=== PATIENT | female | born 2000 | race African-American/Black ===

== ENCOUNTER 2022-02-15 16:15 | Emergency (ER) | payer OTHER, SELFPAY ==
[2022-02-15 16:18] VITALS: BP 123/80; PULSE 97; RESP 16; TEMP 36.8; O2SAT 97
--- NOTE | 2022-02-15 16:36 | ED.GENADULT ---
HPI - General Adult General Chief complaint: Unspecified Stated complaint: requesting strep test Time Seen by Provider: 02/15/22 16:19 Source: RN notes reviewed History of Present Illness HPI narrative: Patient presents emergency department from home for sore throat. Patient states that symptoms began 2 days ago. States she has a sore throat that is worse with swallowing states is associated with chills and rhinorrhea. She denies any fevers, cough, abdominal pain, nausea vomiting diarrhea or any other symptoms. States he has a history of frequent strep infections. Last took ibuprofen at 7 AM this morning Related Data Allergies Allergy/AdvReac Type Severity Reaction Status Date / Time No Known Allergies Allergy Verified 02/15/22 16:16 Review of Systems Review of Systems: Gen.: Denies fevers or chills ENT: See HPI Respiratory: Denies shortness of breath or cough CV: Denies chest pain GI: Denies abdominal pain nausea, emesis or diarrhea Musculoskeletal: Denies back pain or muscle pain Neuro: Denies numbness, tingling, weakness or focal weakness Skin: Denies rash Except as documented, all other systems reviewed and negative [facility] Past Medical History Medical History (Updated 02/15/22 @ 16:38 by Sarabjit Chamorro DO) Patient denies significant medical history Social History Social History (Updated 02/15/22 @ 16:37 by Sarabjit Chamorro DO) Smoking status: Never smoker Exam Narrative: APPEARANCE: No acute distress, nontoxic, resting in bed EYES: EOMI HEENT: Normocephalic, atraumatic, TMs clear bilaterally nares patent or mucosa moist erythema the posterior pharynx bilateral tonsils, bilateral tonsils 3+ with diffuse whitish exudate, uvula midline no trismus tolerating own secretions, voice normal RESPIRATORY: No respiratory distress Clear to auscultation bilaterally with no rhonchi wheezing or rales. CARDIOVASCULAR: Regular rate and rhythm without murmurs rubs or gallops. ABDOMINAL: Soft, nontender, MUSCULOSKELETAl: Moves all extremities. NEURO: Awake and alert. Following commands, speech normal, no focal deficits SKIN:: Warm, dry. No rashes lesions or abrasions PSYCHIATRIC: Normal affect/mood, Course Course Emergency Course: Discussed with patient results of workup and diagnosis. Discussed need for follow-up with primary care, proper use of medication, and reasons to return to the emergency department. Patient understands and agrees to current treatment plan Vital Signs Vital signs: Vital Signs Temperature 98.2 F 02/15/22 16:18 Pulse Rate 97 02/15/22 16:18 Respiratory Rate 16 02/15/22 16:18 Blood Pressure 123/80 02/15/22 16:18 Pulse Oximetry 97 02/15/22 16:18 Temperature 98.2 F 02/15/22 16:18 Pulse Rate 97 02/15/22 16:18 Respiratory Rate 16 02/15/22 16:18 Blood Pressure 123/80 02/15/22 16:18 Pulse Oximetry 97 02/15/22 16:18 Medical Decision Making Vital Signs Vital Signs: Vital Signs Temperature 98.2 F 02/15/22 16:18 Pulse Rate 97 02/15/22 16:18 Respiratory Rate 16 02/15/22 16:18 Blood Pressure 123/80 02/15/22 16:18 Pulse Oximetry 97 02/15/22 16:18 Temperature 98.2 F 02/15/22 16:18 Pulse Rate 97 02/15/22 16:18 Respiratory Rate 16 02/15/22 16:18 Blood Pressure 123/80 02/15/22 16:18 Pulse Oximetry 97 02/15/22 16:18 Lab Data Labs: Strep Screen Presumptive Negative *(Reference Range: Negative)* Discharge Plan Discharge Clinical Impression: Pharyngitis Patient Disposition: Home, Self-Care Condition: Stable Instructions: Antibiotic Form, Pharyngitis (ED) Additional Instructions: Return for increasing sore throat, inability to swallow fever or any other symptoms of concern Prescriptions: New ibuprofen [IBU] 600 mg tablet 600 mg PO Q6H PRN (Reason: pain) Qty: 20 RF: 0 amoxicillin-pot clavulanate 875-125 mg tablet 1 tablet PO Q12H Qty: 2
[2022-02-15] MEDS: IBUPROFEN 600 MG TABLET PO (16:54)
[2022-02-15] MEDS: AMOXICILLIN/CLAVULANATE K 875-125 MG TAB 1 TABLET PO (16:54)
== END 2022-02-15 17:03 | disposition home or self-care (01) ==
PROVIDERS: Emergency Provider Emergency Medicine
DX: J02.9 Acute pharyngitis, unspecified (principal)
CPT/HCPCS: 87081; 87880; 99283; A9270

== ENCOUNTER 2023-01-11 12:12 | Emergency (ER) | payer OTHER, SELFPAY ==
[2023-01-11 12:15] VITALS: BP 129/68; PULSE 78; RESP 16; TEMP 36.6; O2SAT 100
[2023-01-11] MEDS: SODIUM CHLORIDE 0.9% IV 1,000 ML 999 ML IV CONT (12:49)
[2023-01-11] MEDS: ONDANSETRON INJ 4 MG/2 ML VIAL IV PUSH (12:49)
[2023-01-11 12:59] LABS: Basophils Percent Auto 0.2 % (0.2-1.2); Eosinophils Percent Auto 0.1 % (0-4.4); Hematocrit 42.6 % (37.0-47.0); Immature Granulocyte Absolute 0.02 K/mm3 (0.00-0.031); Immature Granulocyte Percent A 0.2 % (0-0.5); Lymphocytes Absolute Auto 0.75 K/mm3 (0.9-3.2); Mean Corpuscular HGB Conc 32.9 g/dl (32-36); Mean Corpuscular Hemoglobin 30.4 pg (26-34); Mean Corpuscular Volume 92.6 fl (80-100); Mean Platelet Volume 9.5 fl (7.4-10.4); Monocytes Absolute Auto 0.3 K/mm3 (0.1-0.6); Monocytes Percent Auto 3.5 % (2.6-8.5); Neutrophils Absolute Auto 8.2 K/mm3 (1.3-6.7); Platelet Count Result 198 k/mm3 (150-375); Red Cell Distribution Width 12.6 % (11.5-14.5); White Blood Count 9.3 K/mm3 (4.5-10.0)
[2023-01-11 13:10] LABS: Appearance Urine Slightly Cloudy (Clear); Bilirubin Urine Negative (Negative); Blood Urine Negative (Negative); Color Urine Yellow (Yellow); Glucose Urine UA Negative (Negative); Ketones Urine Trace mg/dL (Negative); Leukocyte Esterase Ur Negative LEU/UL (Negative); Nitrate Urine Negative (Negative); Protein Urine Trace mg/dL (Negative); Urobilinogen Urine 0.2 mg/dL (<2.0)
[2023-01-11 13:14] LABS: Alanine Aminotransferase 21 U/L (6-35); Albumin Level 4.5 g/dL (3.5-5.1); Alkaline Phosphatase 46 U/L (38-126); Anion Gap 3 mmol/L (8-16); Aspartate Amino Transferase 32 U/L (14-36); Bilirubin,Total 0.5 mg/dL (0.2-1.3); Blood Urea Nitrogen 8 mg/dL (7-17); Carbon Dioxide 28 mmol/L (22-30); Chloride 107 mmol/L (98-107); Estimated CRCL calculation 123 ml/min; Estimated Glomerular Filt Rate > 60; Glucose 100 mg/dL (65-110); Lipase 45 U/L (23-300); Potassium 4.1 mmol/L (3.4-5.0); Sodium 138 mmol/L (137-145)
[2023-01-11 13:15] LABS: Amorphous Sediment Urine Few; Mucus Urine Rare /lpf; RBC Urine 0-2 /hpf (0-2); Squamous Epithelial Cell Urine Few /hpf (Few); WBC Urine 0-3 /hpf
[2023-01-11 13:18] LABS: Add Urine Microscopic? YES
--- NOTE | 2023-01-11 13:19 | ED.NAVMDI ---
HPI - Nausea/Vomiting/Diarrhea General Chief complaint: Nausea/Vomiting/Diarrhea Stated complaint: N/V Time Seen by Provider: 01/11/23 12:13 History of Present Illness HPI Narrative: Patient is a 22-year-old female who presents to the ER with nausea and vomiting. It began at 6:45 AM. She has had multiple episodes and is only vomiting stomach acid at this point. No diarrhea. Occasional abdominal cramping but no pain. No fevers chills or sweats. Mild runny nose but no sore throat or productive cough. No known sick contacts. No alleviating factors. Patient reports concern for possible COVID given her symptoms. Related Data Allergies Allergy/AdvReac Type Severity Reaction Status Date / Time No Known Allergies Allergy Verified 01/11/23 12:18 Review of Systems Review of Systems: All systems reviewed & are unremarkable except as noted in HPI and below Constitutional: Constitutional: Reports chills, Denies fatigue and Denies fever(s) Respiratory: Respiratory: Denies cough and Denies dyspnea Gastrointestinal: Gastrointestinal: Denies abdominal pain, Denies diarrhea, Reports nausea and Reports vomiting Genitourinary: Genitourinary: Denies hematuria and Denies dysuria PMFSH Past Medical History Medical History (Updated 01/11/23 @ 14:51 by Paul Dailey MD) Patient denies significant medical history Surgical History Surgical History (Updated 01/11/23 @ 13:24 by Paul Dailey MD) No history of previous surgery Social History Social History (Updated 02/15/22 @ 16:37 by Sarabjit Chamorro DO) Smoking status: Never smoker Exam Narrative: GENERAL: Well-appearing, well-nourished, and in no acute distress. HEAD: Normocephalic, atraumatic. ENT: Mucous membranes moist. CHEST: Clear to auscultation. No respiratory distress. HEART: Regular rate and rhythm. Normal peripheral pulses. ABDOMEN: Soft, nontender, nondistended, normal active bowel sounds. EXTREMITIES: Normal range of motion. No edema. SKIN: Warm, dry, no rash. NEURO: Alert and oriented x3. PSYCH: Normal mood and affect. Course Course Emergency Course: I have informed the patient of her results which are unremarkable for acute kidney injury, dehydration, or flu/COVID. Patient felt to have a GI illness causing nausea and vomiting. She will be discharged with antiemetics for home. Patient without any additional concerns. She did receive IV fluid and Zofran here which makes her feel much better. Vital Signs Vital signs: Vital Signs Temperature 97.8 F 01/11/23 12:15 Pulse Rate 78 01/11/23 12:15 Respiratory Rate 16 01/11/23 12:15 Blood Pressure 129/68 01/11/23 12:15 Pulse Oximetry 100 01/11/23 12:15 Temperature 97.8 F 01/11/23 12:15 Pulse Rate 78 01/11/23 12:15 Respiratory Rate 16 01/11/23 12:15 Blood Pressure 129/68 01/11/23 12:15 Pulse Oximetry 100 01/11/23 12:15 MDM - Nausea/Vomiting/Diarrhea Lab Data 01/11/23 12:50 01/11/23 12:50 Labs: Lab Results 01/11/23 01/11/23 01/11/23 Range/Units 12:50 12:50 12:50 WBC 9.3 (4.5-10.0) K/mm3 RBC 4.60 (4.2-5.4) M/mm3 Hgb 14.0 (12.0-15.0) g/dL Hct 42.6 (37.0-47.0) % MCV 92.6 (80-100) fl MCH 30.4 (26-34) pg MCHC 32.9 (32-36) g/dl RDW 12.6 (11.5-14.5) % Plt Count 198 (150-375) k/mm3 MPV 9.5 (7.4-10.4) fl Immature Gran % (Auto) 0.2 (0-0.5) % Neut % (Auto) 88.0 H (45.5-73.1) % Lymph % (Auto) 8.0 L (18.3-44.2) % Benzie % (Auto) 3.5 (2.6-8.5) % Eos % (Auto) 0.1 (0-4.4) % Baso % (Auto) 0.2 (0.2-1.2) % Lymph # (Auto) 0.75 L (0.9-3.2) K/mm3 Benzie # (Auto) 0.3 (0.1-0.6) K/mm3 Eos # (Auto) 0.0 (0-0.3) K/mm3 Baso # (Auto) 0.0 (0.0-0.1) K/mm3 Abs Immat Gran (auto) 0.02 (0.00-0.031) K/mm3 Absolute Neuts (auto) 8.2 H (1.3-6.7) K/mm3 Absolute Nucleated RBC 0.0 (0.0-0.012) K/mm3 Nucleated RBC % 0.0 (0.0-0.2) % Sodium
[2023-01-11 13:36] LABS: Influenza A QL RT-PCR Negative (Negative); Influenza B QL RT-PCR Negative (Negative); SARS-CoV-2 RNA PCR Negative
--- NOTE | 2023-01-15 08:48 | PC.NURSE ---
late entry 01/11/23 ns 1000 cc infused at 1349
== END 2023-01-11 15:18 | disposition home or self-care (01) ==
PROVIDERS: Emergency Provider Emergency Medicine
DX: R11.2 Nausea with vomiting, unspecified (principal); Z20.822 Contact with and (suspected) exposure to COVID-19
CPT/HCPCS: 36415; 80053; 81001; 81025; 83690; 85025; 87636; 96361; 96374; 99284; J2405; J7030

== ENCOUNTER 2024-12-26 13:20 | Emergency (ER) | payer OTHER, SELFPAY ==
[2024-12-26 13:28] VITALS: BP 121/75; PULSE 77; RESP 18; TEMP 36.6; O2SAT 100
--- OUTSIDE RECORDS SUMMARY | 2024-12-26 14:03 | XMS_ITS | Referral Summary ---
Author Organization [facility] Address [address] [place] [id number] Care Team Providers Care Technician Support Association Name Role Phone Gonzalez Guadalupe MD Primary Care Provider Allergies No known active allergies Medications No known medications Immunizations Name Administration Dates Next Due COVID Pfizer 12Y+ (Requires Dilution) 05/07/2021 ,04/14/2021 Social History Tobacco Use Types Packs/Day Years Used Date Smoking Tobacco: Never Smokeless Tobacco: Never Alcohol Use Standard Drinks/Week Comments Never 0 (1 standard drink = 0.6 oz pur e alcohol) Inadequate Housing Answer Date Recorded Social Determinants: Housing (Overall Score Help er) 0 09/17/2023 Sex and Gender Information Value Date Recorded Sex Assigned at Female 04/14/2021 6:37 AM CDT Gender Identity Female 04/14/2021 6:37 AM CDT Sexual Orientation Not on file Last Filed Vital Signs Vital Sign Reading Time Taken Comments Blood Pressure 107/72 11/06/2020 8:39 AM ANATOMY PROFESSOR Pulse 73 11/06/2020 8:39 AM ANATOMY PROFESSOR Temperature 36.6 ??C (97.8 ??F) 11/06/2020 8:39 AM CS T 97.8 Respiratory Rate 16 11/06/2020 8:39 AM ANATOMY PROFESSOR Oxygen Saturation 100% 11/06/2020 8:39 AM ANATOMY PROFESSOR Inhaled Oxygen Concentration - - Weight 72.6 kg (160 lb) 11/06/2020 8:39 AM ANATOMY PROFESSOR Height 160 cm (5' 3 ) 11/06/2020 8:39 AM ANATOMY PROFESSOR Body Mass Index 28.34 11/06/2020 8:39 AM ANATOMY PROFESSOR Plan of Treatment Not on file Procedures Procedure Name Priority Date/Time Associated Diagnosis Comments CHLAMYDIA/GONORRHEA BY NUCLEIC ACID AMPLIFICATION Routine 09/19/2023 11:28 AM CDT Encounter for screening for infections with a predominantly sexual mode of transmission from Last 3 Months or Most Recently Relevant to Health Maintenance Results * Chlamydia/Gonorrhea by Nucleic Acid Amplification (09/19/2023 11:28 AM CDT) Chlamydia trachomatis by Nucleic Acid Amplification Negative Negative [facility] 09/21/2023 11:56 AM CDT [facility] Neisseria gonorrhoeae by Nucleic Acid Amplification Negative Negative [facility] 09/21/2023 11:56 AM CDT [facility] Disclaimer The expected normal reference range is negative. Positive results are reported to the [facility] Department of Public Health. The Aptima Combo 2 Assay is not intended for the evaluation of suspected sexual abuse or for other medico-legal indications, nor has it been evaluated in adolescents less than 14 years of age. In these scenarios, and in clinical settings where the prevalence of infection is low, confirmatory testing on positive results is recommended. [facility] 09/21/2023 11:56 AM CDT [facility] Swab VAGINAL STRUCTURE / Unknown 09/19/2023 11:28 AM CDT 09/19/2023 9:39 PM CDT Buffy Pratt MD [facility] DI[facility]N ORD [facility] [address] [place] [address] from Last 3 Months or Most Recently Relevant to Health Maintenance Care Teams Technician Support Association Relationship Specialty Start Date End Date Gonzalez Guadalupe MD [address] [place] [address] PCP - General Family Practice 11/06/20
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
--- OUTSIDE RECORDS SUMMARY | 2024-12-26 14:03 | XMS_ITS | Clinical Summary ---
Author Organization [facility] Address [address] [place] [address] Care Team Providers Care Pump Technician Name Role Phone Gonzalez Guadalupe MD Primary Care Provider Allergies No known active allergies Medications No known medications Immunizations Name Administration Dates Next Due COVID Pfizer 12Y+ (Requires Dilution) 05/07/2021 ,04/14/2021 Surgical History Surgery Date Site/Laterality Comments NO PAST SURGERIES Medical History Medical History Date Comments No known problems Social History Tobacco Use Types Packs/Day Years [...] AM CDT Sexual Orientation Not on file Obstetrics History Last Filed Vital Signs Vital Sign Reading Time Taken Comments Blood Pressure 107/72 11/06/2020 8:39 AM HEALTHCARE FINANCIAL ANALYST Pulse 73 11/06/2020 8:39 AM HEALTHCARE FINANCIAL ANALYST Temperature 36.6 ??C (97.8 ??F) 11/06/2020 8:39 AM CS T 97.8 Respiratory Rate 16 11/06/2020 8:39 AM HEALTHCARE FINANCIAL ANALYST Oxygen Saturation 100% 11/06/2020 8:39 AM HEALTHCARE FINANCIAL ANALYST Inhaled Oxygen Concentration - - Weight 72.6 kg (160 lb) 11/06/2020 8:39 AM HEALTHCARE FINANCIAL ANALYST Height 160 cm (5' 3 ) 11/06/2020 8:39 AM HEALTHCARE FINANCIAL ANALYST Body Mass Index 28.34 11/06/2020 8:39 AM HEALTHCARE FINANCIAL ANALYST Plan of Treatment Health Maintenance Due Date Last Done Comments Depression Screening 2013 DTaP/Tdap/Td Vaccine (7 - Td or Tdap) 07/19/2022 07/19/2012, 03/11/2006, 06/06/2003, Additional history exists COVID-19 Vaccine ( season) 2024 05/07/2021, 04/14/2021 Influenza Vaccine (#1) 2024 Chlamydia and Gonorrhea Screening (if sexually active) 09/19/2024 09/19/2023 Hepatitis B Vaccine Completed 10/20/2002, 2001, 2001 Pneumococcal Vaccine 0-49 Aged Out 2002, 10/20/2002, 2001, Additional history exists No longer eligible based on patient's age to complete this topic HPV Vaccine Completed 07/05/2015, 11/13/2014 Varicella Vaccine Completed 07/05/2015, 11/26/2002 Meningococcal Vaccine Completed 04/15/2018, 013 Procedures Procedure Name Priority Date/Time Associated Diagnosis [...] negative. Positive results are reported to the [place] Department of Public Health. The Aptima Combo [...] MD [facility] [address] [place] [address] from Last 3 Months or Most Recently Relevant to Health Maintenance Care Teams Pump Technician Relationship Specialty Start Date End Date Gonzalez Guadalupe MD [address] [place] [address] PCP - General Family Practice 11/06/20
--- OUTSIDE RECORDS SUMMARY | 2024-12-26 14:03 | XMS_ITS | Encounter Summary ---
Author Organization [facility] Address [address] [place] [address] Care Team Providers Care Property Appraiser Name Role Phone Gonzalez Guadalupe MD Primary Care Provider [phone] Encounter Details Date Type Department Care Team (Latest Contact Info) Description 09/19/2023 Community Orders [facility] [address] [place] [address] Buffy Pratt MD [address] [facility] [address] [place] [address] Encounter for gynecological examination (general) (routine) without abnormal findings (Primary Dx); Encounter for screening for infections with a predominantly sexual mode of transmission Social History Tobacco Use Types Packs/Day Years [...] AM CDT Sexual Orientation Not on file documented as of this encounter Plan of Treatment Not on file documented as of this encounter Results * Chlamydia/Gonorrhea by Nucleic Acid Amplification (09/19/2023 11:28 AM CDT) Chlamydia trachomatis by Nucleic Acid Amplification Negative Negative [facility] 09/21/2023 11:56 AM CDT [facility] [place] [facility] Neisseria gonorrhoeae by Nucleic Acid Amplification Negative Negative [facility] 09/21/2023 11:56 AM CDT [facility] [place] [facility] Disclaimer The expected normal reference range is negative. Positive results are reported to the [facility] Department of Public Health. The Aptima Combo 2 Assay is not intended for the evaluation of suspected sexual abuse or for other medico-legal indications, nor has it been evaluated in adolescents less than 14 years of age. In these scenarios, and in clinical settings where the prevalence of infection is low, confirmatory testing on positive results is recommended. [facility] - [facility] 09/21/2023 11:56 AM CDT [facility] [place] [facility] Swab VAGINAL STRUCTURE / Unknown 09/19/2023 11:28 AM CDT 09/19/2023 9:39 PM CDT Buffy Pratt MD [facility] DI[facility] [place] [facility] [address] [place] [address] * (ABNORMAL) Pap Test (09/19/2023 11:28 AM CDT) Case Report Gynecological Cytology ?Case: [id number] ? Authorizing Provider: ??Buffy Pratt MD ?Collected: ? 09/19/2023 1128 ? Ordering Location: ? [facility] ?Received: ?09/21/2023 0757 ? First Screen: ?Imelda Jerry ? Rescreen: ?DenisGraham ? Pathologist: ? Mike Solomon MD ? Specimen: ?ThinPrep Pap Test, Cervix ? 09/25/2023 10:44 AM CDT [facility] General Categorization A Epithelial cell abnormality: SQUAMOUS 09/25/2023 10:44 AM T [facility] Interpretation Low grade squamous intraepithelial lesion (LSIL).(A) 09/25/2023 10:44 AM CDT [facility] Specimen Adequacy Satisfactory for evaluation, endocervical/leung sformation zone component present. 09/25/2023 10:44 AM CDT [facility] Other Findings Case reviewed by the pathologist. 09/25/2023 10:44 AM CDT [facility] Clinical Information 09/25/2023 10:44 AM CDT [facility] Pap Educational Note The Pap test is a screening test with a well-recognized false negative rate. The best means available to lower the false negative rate and to detect early cervical lesions is a Pap test at regular intervals. All ThinPrep Paps will be reviewed with the aid of the ThinPrep Imaging System, unless otherwise specified. For assistance in current consensus management guidelines, refer to the [place] Society [employer] Colposcopy and Cervical Pathology website at www.asccp.org First Screen performed at: [facility] [address] [facility] [id number] 09/25/2023 10:44 AM CDT [facility] [place] [facility] Friendly + Spatula CERVIX UTERI STRUCTURE / Unknown 09/19/2023 11:28 AM CDT 09/21/2023 7:57 AM CDT Buffy Pratt MD BKR LAB CYTOLOGY ORD ERABLES [facility] [address] [address] [facility] [place] [facility] [address] [place] [address] documented in this encounter Visit Diagnoses Diagnosis Encounter for gynecological examination (general) (routine) without abnormal findings- Primary Encounter for screening for infections with a predominantly sexual mode of transmission documented in this encounter Care Teams Property Appraiser Relationship Specialty Start Date End Date Gonzalez Guadalupe MD [address] [place] [address] PCP - General Family Practice 11/06/20 documented as of this encounter
--- NOTE | 2024-12-26 14:14 | ED.FEMALEGU ---
HPI - Female Genitourinary General Chief complaint: Urogenital-Female Stated complaint: Gonad Irritation Time Seen by Provider: 12/26/24 14:15 Source: patient, RN notes reviewed and old records reviewed Mode of arrival: ambulatory Limitations: no limitations History of Present Illness HPI Narrative: patient presents with complaints vaginal discharge that has her concerned. She does report that she has unprotected sex with a partner of 6 years. Also reports that she noticed some irritation after a switch in toilet paper brands the dorm in which she lives. She denies any urinary symptoms. She denies any pain, including abdominal pain and back pain. She denies any fever, chills, sweats. Denies any injury or trauma. No other concerns or complaints at this time Related Data Home Medications ?Medication ?Instructions ?Recorded ?Confirmed ?Last Taken ?Type sertraline 50 mg tablet mg 12/26/24 Unknown History Allergies Allergy/AdvReac Type Severity Reaction Status Date / Time No Known Allergies Allergy Verified 12/26/24 14:10 Review of Systems Review of Systems: All systems reviewed & are unremarkable except as noted in HPI and below Constitutional: Constitutional: Reports as per HPI and Reports no additional constitutional complaints ENT: Reports system reviewed and no additional complaints, except as documented Cardiovascular: Cardiovascular: Reports no additional cardiovascular complaints Respiratory: Respiratory: Reports no additional respiratory complaints Gastrointestinal: Gastrointestinal: Reports no additional gastrointestinal complaints Genitourinary: Genitourinary: Reports vaginal discharge [facility] Past Medical History Medical History (Updated 12/26/24 @ 14:49 by Michelle Garibay APRN) Patient denies significant medical history Surgical History Surgical History No history of previous surgery Social History Social History Smoking status: Never smoker Comments At the time of my signature, I reviewed and agree with the nursing past medical, surgical, social, and family history. There is no relevant family history pertinent to the patient complaint. Exam Const: General: cooperative, no acute distress, alert and awake Orientation/consciousness: oriented to person, oriented to place and oriented to time HENMT: Head: normal to inspection Resp: Effort & Inspection: normal respiratory effort and able to speak in complete sentences Auscultation: clear to auscultation bilaterally, no crackles, no rales, no rhonchi and no wheezes Cardio: Palpation: normal PMI Rate: regular rate Rhythm: regular rhythm Heart sounds: S1 normal heart sound present and S2 normal heart sound present : External Female Exam: other ( small area excoriation, shaving injury versus herpetic lesion) Speculum Exam - Vagina: abnormal vaginal discharge yellow Neuro: General: oriented to person, oriented to place and oriented to time Cranial nerves: Yes CN's II-XII intact bilaterally Psych: Appearance: grossly normal Thought process: Normal thought process present Insight: Good insight present (Psych) Judgement: Good judgement present (Psych) Course Course Level of Care: Express Care Visit Vital Signs Vital signs: Vital Signs Temperature 97.8 F 12/26/24 13:28 Pulse Rate 77 12/26/24 13:28 Respiratory Rate 18 12/26/24 13:28 Blood Pressure 121/75 12/26/24 13:28 Pulse Oximetry 100 12/26/24 13:28 Oxygen Delivery Room Air 12/26/24 13:28 Temperature 97.8 F 12/26/24 13:28 Pulse Rate 77 12/26/24 13:28 Respiratory Rate 18 12/26/24 13:28 Blood Pressure 121/75 12/26/24 13:28 Pulse Oximetry 100 12/26/24 13:28 Oxygen Delivery Room Air 12/26/24 13:28 Reviewed MDM - Female Genitourinary MDM Narrative Medical decision making narrative: patient with copious vaginal discharge on exam. Swab sent. Shallow sore to right labia majora, she being injury versus herpetic lesion. Culture sent of this site. Patient advised we will call with any positive results. She is encouraged to abstain from sexual activity until all results are in. Discharge instructions reviewed with patient, as well as provided in writing per nursing staff. The instructions also include specific and strict return/GO TO THE ER as well as f/u information. All questions have been answered, and the patient deny any further questions with discharge and discharge plan. Some parts of this dictation were generated by voice recognition software and may contain typographical and/or grammatical inaccuracies. Differential Diagnosis Differential diagnosis: Likely urinary tract infection, trichomoniasis and vaginitis Medical Records Attestation: I reviewed the patient's medical records. Lab Data Attestation: I reviewed the patient's lab results. Discharge Plan Discharge Clinical Impression: Vaginal discharge Patient Disposition: Home, Self-Care Condition: Stable Instructions: Antibiotic Form, Safe Sex Practices (ED) Additional Instructions: your specimens will be sent to the lab. You will receive a phone call if there are any positive results Patient Language: Monegasque Prescriptions: No Action sertraline 50 mg tablet Follow-up/Referrals: UNKNOWN,DOCTOR [Primary Care Provider] - Time of Disposition: 14:49
[2024-12-26 21:06] LABS: Trichomonas Vag PCR NOT DETECTED (NOT DETECTE)
[2024-12-26 21:32] LABS: Chlamydia trachomatis NOT DETECTED (NOT DETECTE); Neisseria gonorrhoeae PCR NOT DETECTED (NOT DETECTE)
[2024-12-27 20:18] LABS: Bacterial Vaginosis POSITIVE (NEGATIVE)
[2024-12-30 21:18] LABS: Source NOT GIVEN
== END 2024-12-26 15:04 | disposition home or self-care (01) ==
PROVIDERS: Emergency Provider Nurse Practitioner Family
DX: N76.0 Acute vaginitis (principal)
CPT/HCPCS: 81513; 87140; 87255; 87491; 87591; 87661; 99213; G0463